=== PATIENT | male | born 1970 | race American Indian/Alaskan Native ===

== ENCOUNTER 2018-09-02 10:25 | Emergency (ER) | payer OTHER ==
[2018-09-02] MEDS ORDERED: TYLENOL #3 PO ONE (10:53)
[2018-09-02] MEDS ORDERED: PEPCID PO ONE (10:53)
--- NOTE | 2018-09-02 11:00 | Emergency Department Report ---
ED Chest Pain HPI - General Chief Complaint: Chest Pain Stated Complaint: CHEST PAIN Time Seen by Provider: 09/02/18 10:48 Source: patient Mode of arrival: Ambulatory Limitations: No Limitations - History of Present Illness Initial Comments: This is a 48-year-old male who presents to ED complaining of mainly lower abdomen to chest pain that worsened with eating for the past 2 months. Patient states that eating exacerbates this pain. Patient also states that pain is worse with laying down when he goes to sleep at night. Patient denies any radiation elsewhere. Patient describes pain as a aching and burning pain sometimes. Patient states that pain is intermittent. He denies C versus serositis nausea vomiting or diarrhea. - Related Data Previous Rx's Medication Instructions Recorded Last Taken Type Famotidine [Pepcid] 20 mg PO BID #30 tablet 09/02/18 Unknown Rx Omeprazole 20 mg PO BID #30 tab. 09/02/18 Unknown Rx Allergies Allergy/AdvReac Type Severity Reaction Status Date / Time No Known Allergies Allergy Unverified 09/02/18 10:28 Heart Score - HEART Score History: Slightly suspicious EKG: Normal Age: 45-65 Risk factors: No known risk factors Troponin: < normal limit HEART Score: 1 ED Review of Systems ROS: Stated complaint: CHEST PAIN Other details as noted in HPI Comment: All other systems reviewed and negative ED Past Medical Hx - Past Medical History Hx Diabetes: Yes - Surgical History Past Surgical History?: No - Social History Smoking Status: Never Smoker Substance Use Type: None - Medications Home Medications: Home Medications Medication Instructions Recorded Confirmed Last Taken Type Famotidine [Pepcid] 20 mg PO BID #30 tablet 09/02/18 Unknown Rx Omeprazole 20 mg PO BID #30 tab. 09/02/18 Unknown Rx ED Physical Exam - General Limitations: No Limitations General appearance: alert, in no apparent distress - Head Head exam: Present: atraumatic, normocephalic - Eye Eye exam: Present: normal appearance - ENT ENT exam: Present: mucous membranes moist - Neck Neck exam: Present: normal inspection - Respiratory Respiratory exam: Present: normal lung sounds bilaterally. Absent: respiratory distress - Cardiovascular Cardiovascular Exam: Present: regular rate, normal rhythm. Absent: systolic murmur, diastolic murmur, rubs, gallop - GI/Abdominal GI/Abdominal exam: Present: soft, normal bowel sounds. Absent: distended, tenderness, guarding, rebound - Rectal Rectal exam: Present: deferred - Extremities Exam Extremities exam: Present: normal inspection - Back Exam Back exam: Present: normal inspection - Neurological Exam Neurological exam: Present: alert, oriented X3 - Psychiatric Psychiatric exam: Present: normal affect, normal mood - Skin Skin exam: Present: warm, dry, intact, normal color. Absent: rash ED Course Vital Signs 09/02/18 10:31 Temperature 98.3 F Pulse Rate 97 H Respiratory 18 Rate Blood Pressure 159/96 O2 Sat by Pulse 100 Oximetry MARKUS score - Markus Score Age > 65: (0) No Aspirin use within the Past 7 Days: (0) No 3 or more CAD Risk Factors: (0) No 2 or more Angina events in past 24 hrs: (0) No Known CAD with more than 50% Stenosis: (0) No Elevated Cardiac Markers: (0) No ST Deviation Greater than 0.5mm: (0) No MARKUS Score: 0 ED Medical Decision Making - Radiology Data Radiology results: report reviewed, image reviewed INDICATION: Chest pain when eating, onset 2 months ago.. COMPARISON: FINDINGS: Support devices: None. Heart: Within normal limits. Lungs/Pleura: No acute air space or interstitial disease. Additional findings: None. IMPRESSION: No acute findings. Signer Name: Alec Mireles Jr, MD Signed: 09/02/2018 10:59 AM Workstation Name: [id number] - Medical Decision Making 48-year-old male presents with a acid reflux gastritis. Chest x-ray shows no acute findings C reported above. All labs within normal limits. Discussed the patient to avoid acidic foods. 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 Patient is speaking in complete sentences, he understands instructions he is in no acute distress. Critical care attestation.: If time is entered above; I have spent that time in minutes in the direct care of this critically ill patient, excluding procedure time. ED Disposition Clinical Impression: GERD (gastroesophageal reflux disease) Disposition: DC-01 TO HOME OR SELFCARE Is pt being admited?: No Does the pt Need Aspirin: No Condition: Stable Instructions: Gastroesophageal Reflux Disease (ED), Diet for Ulcers and Gastritis (ED) Additional Instructions: Make sure to follow up with the primary care physician as discussed. Take all your medications as you've been prescribed. If you have any worsening symptoms or develop new symptoms please return to ED immediately. Prescriptions: Omeprazole 20 mg PO BID #30 tab.rap. Famotidine [Pepcid] 20 mg PO BID #30 tablet Referrals: [facility] [Provider Group] - 3-[address] [facility] [Provider Group] - 3-5 Days Forms: Accompanied Note, Work/School Release Form(ED)
--- NOTE | 2018-09-02 11:04 | XRay Report ---
CHEST 1 VIEW INDICATION: Chest pain when eating, onset 2 months ago.. COMPARISON: FINDINGS: Support devices: None. Heart: Within normal limits. Lungs/Pleura: No acute air space or interstitial disease. Additional findings: None. IMPRESSION: No acute findings. Signer Name: Alec Mireles Jr, MD Signed: 09/02/2018 10:59 AM Workstation Name: [id number]
[2018-09-02 11:16] LABS: Basophils # (Auto) 0.1 K/mm3 (0.0-0.1); Basophils % (Auto) 1.3 % (0.0-1.8); Eosinophils % (Auto) 0.7 % (0.0-4.3); Hematocrit 49.7 % (35.5-45.6); Hemoglobin 17.2 gm/dl (11.8-15.2); Lymphocytes # (Auto) 2.3 K/mm3 (1.2-5.4); Lymphocytes % (Auto) 40.8 % (13.4-35.0); Mean Corpuscular HGB Conc 35 % (32-34); Mean Corpuscular Volume 96 fl (84-94); Monocytes # (Auto) 0.5 K/mm3 (0.0-0.8); Monocytes % (Auto) 8.9 % (0.0-7.3); Platelet Count 211 K/mm3 (140-440); Red Blood Count 5.18 M/mm3 (3.65-5.03); Red Cell Distribution Width 12.9 % (13.2-15.2)
[2018-09-02 11:28] LABS: BUN/Creatinine Ratio 18; Blood Urea Nitrogen 18 mg/dL (9-20); Calcium 9.3 mg/dL (8.4-10.2); Hemolysis Index 36
[2018-09-02 11:51] VITALS: BP 154/90
== END 2018-09-02 11:50 | disposition home or self-care (01) ==
LOC: ED 10:25
DX: K21.9 Gastro-esophageal reflux disease without esophagitis (principal); E11.9 Type 2 diabetes mellitus without complications
CPT/HCPCS: 36415; 71045; 80048; 84484; 85025; 93005; 93010

== ENCOUNTER 2018-12-05 09:22 | Emergency (ER) | payer OTHER ==
[2018-12-05 09:32] VITALS: BP 145/86
--- NOTE | 2018-12-05 09:51 | Emergency Department Report ---
Chief Complaint: Extremity Injury, Upper Stated Complaint: SHARP/TINGLING HANDS AND FEET Time Seen by Provider: 12/05/18 09:42 - HPI History of Present Illness: Patient is a 48-year-old gentleman with a past medical history of [id number] diabetes who is presenting with pain and tingling in his fingers and toes bilaterally. She states is been no trauma. He's had this pain off and on for over a year. The patient is noncompliant with oral hypoglycemics. Patient states he didn't know where else to go so he came to the emergency department. He denies any trauma fevers chills nausea vomiting diarrhea chest pain or shortness of breath. Patient states to tingling in his hands and toes bilateral and occurs several times a month. - ROS Review of Systems: All other 'systems are reviewed and are negative - Exam Vital Signs: Vital Signs 12/05/18 09:28 Temperature 97.7 F Pulse Rate 82 Respiratory 16 Rate Blood Pressure 145/86 O2 Sat by Pulse 99 Oximetry Physical Exam: Patient alert and oriented 3 with normal heart and lung sounds. There is no swelling redness and warmth erythema to the bilateral hands. He has full range of motion and good strength. MSE screening note: Focused history and physical exam performed. Due to findings the following was ordered: ED Medical Decision Making - Medical Decision Making Patient is a nonmedical emergency at this time. Blood sugar was 280. Patient will be referred to [facility] for internal medicine evaluation and medication refills. Patient urged to take Tylenol or Motrin for neuro pathic pain. ED Disposition for MSE Clinical Impression: Chronic neuropathic pain, Medical non-compliance Disposition: MED SCREENING EXAM-LEFT Is pt being admited?: No Does the pt Need Aspirin: No Condition: Stable Instructions: Diabetic Neuropathy (ED) Additional Instructions: Please take Tylenol or Motrin for your chronic neuropathic pain. Please follow- up with the clinic across the street who have primary care doctors who conceive for your diabetes Referrals: CARL JOHN MD [Referring] - 3-5 Days Time of Disposition: 09:51
== END 2018-12-05 10:00 | disposition left against medical advice (07) ==
LOC: ED 09:22
DX: M79.2 Neuralgia and neuritis, unspecified (principal); G89.29 Other chronic pain; Z91.14 Patient's other noncompliance with medication regimen
CPT/HCPCS: 82962